=== PATIENT | female | born 1980 | race Caucasian/White ===

== ENCOUNTER 2016-10-06 22:12 | Emergency (ER) | payer SELFPAY ==
[~2016-10-06] VITALS: Ht 152.4 cm; Wt 64.5 kg
[~2016-10-06 22:12] MED LIST: BEN50 PO; PRED20TA PO; RANI150T9 PO
[2016-10-06 22:24] VITALS: Ht 152.4 cm; Wt 64.5 kg
== END 2016-10-07 01:24 | disposition left against medical advice (07) ==
LOC: FTE 22:12
DX: Z53.21 Procedure and treatment not carried out due to patient leaving prior to being seen by health care provider (principal)